=== PATIENT | female | born 1965 | race Caucasian/White ===

== ENCOUNTER 2018-10-13 16:31 | Emergency (ER) | payer MEDICAID ==
[~2018-10-13] VITALS: Ht 162.6 cm; Wt 77.6 kg
[2018-10-13 16:38] VITALS: BP 151/101
[2018-10-13] MEDS: SULFAMETH/TRIMETH DS 800/160MG 1 TAB PO ONE (17:42)
[2018-10-13] MEDS: PHENAZOPYRIDINE 100 MG TAB PO ONE (17:43)
[2018-10-13] MEDS: ONDANSETRON 4 MG ODT PO ONE (17:43)
[2018-10-13 18:20] VITALS: BP 142/87
== END 2018-10-13 18:41 | disposition home or self-care (01) ==
LOC: MED 16:31
DX: N39.0 Urinary tract infection, site not specified (principal)
CPT/HCPCS: 81002; 81025; 99284; Q0162